=== PATIENT | female | born 1980 | race Caucasian/White ===

== ENCOUNTER 2020-03-04 16:17 | Emergency (ER) | payer MEDICAID, SELFPAY ==
[2020-03-04 16:30] VITALS: PULSE 114; RESP 20; TEMP 36.7; O2SAT 95; BMI 38.2
--- NOTE | 2020-03-04 18:16 | ED_ITS ---
HPI - General Adult General: Chief complaint: General Medical Stated complaint: Constant sweating, mild nausea, fatigue, Time Seen by Provider: 03/04/20 18:06 History of Present Illness: HPI narrative: Patient concerned about hepatitis C exposure through unprotected intercourse while back also concerned about diabetes. And patient says she is in [facility] to complete other testing says she does feel like she is more fatigued and urinating more sweating a lot denies any history of thyroid problems denies any vaginal discharge or other related problems. Onset (ago): month(s) Associated symptoms: Reports no associated symptoms; Deny chest pain, dyspnea, headache(s), nausea, rash or vomiting Review of Systems Const: Reports: fatigue and other (Sweats); Denies: fever(s), chills or body aches Eyes: Denies: change in vision or blurry vision ENMT: Denies: throat pain or nasal congestion Card: Denies: chest pain or dyspnea on exertion Resp: Denies: dyspnea, productive cough or non-productive cough GI: Denies: abdominal pain, nausea or vomiting Musc: Denies: extremity pain Skin/Breast: Denies: rash Neuro: Denies: headache(s) Psych: Denies: anxiety or depression Delta/Lymph: Denies: easy bruising Physical Exam Const: COMMON NORMALS: no acute distress, average body habitus and patient oriented x3 HENMT: COMMON NORMALS: normocephalic HEAD & SCALP: normal to inspection and normocephalic FACE & SINUS: normal facial exam Eye: COMMON NORMALS: conjunctivae normal GENERAL EYE: appearance normal, both eyes and all related structures CONJUNCTIVA: Yes conjunctivae normal Neck/C-Spine: COMMON NORMALS: no JVD Chest: COMMONS NORMALS: normal inspection of the chest Resp: COMMON NORMALS: normal respiratory effort and clear to auscultation bilaterally AUSCULTATION: clear to auscultation bilaterally Cardio: COMMON NORMALS: no JVD, regular rate and regular rhythm RATE: regular rate RHYTHM: regular rhythm GI: COMMON NORMALS: Normal to inspection, nondistended, normoactive bowel sounds present Extremity: COMMON NORMALS: normal to inspection and full ROM Neuro: COMMON NORMALS: patient oriented x3 Course Vital Signs: Vital signs: Vital Signs Temperature 98.1 F 03/04/20 16:30 Pulse Rate 114 H 03/04/20 16:30 Respiratory Rate 20 H 03/04/20 16:30 Pulse Oximetry 95 03/04/20 16:30 Coding Level of Care Code ED Summer Child Caregiver for Linda Jarquin
[2020-03-04 18:57] LABS: Add Urine Microscopic? NO
[2020-03-04 19:02] LABS: Bilirubin Urine Neg (Negative); Blood Urine Neg (Negative); Glucose Urine UA Norm (Normal); Ketones Urine Negative (Negative); Leukocyte Esterase Urine Negative (Negative); Nitrate Urine Negative (Negative); Protein Urine Neg (Negative); Urine Appearance Clear (CLEAR); Urine Color Yellow (Yellow); Urobilinogen Urine Norm (Negative); pH Urine 5 (5-7)
[2020-03-04 19:26] LABS: Basophils # 0.1 10^3/uL (0.0-0.1); Basophils % 0.4 %; Eosinophils # 0.3 10^3/uL (0.0-0.8); Eosinophils % 1.9 %; Hemoglobin 13.2 g/dL (11.5-15.3); Lymphocytes # 1.9 10^3/uL (0.8-4.8); Lymphocytes % 14.1 %; Mean Corpuscular HGB Conc 30.7 g/dL (30.0-36.0); Mean Corpuscular Hemoglobin 25.3 pg (28.0-34.0); Mean Corpuscular Volume 82.5 fL (81-99); Mean Platelet Volume 12.2 fL (7.4-10.4); Monocytes # 0.9 10^3/uL (0.2-0.9); Monocytes % 6.7 %; Neutrophils # 10.44 10^3/uL (1.8-7.7); Neutrophils % 76.1 %; Nucleated Red Blood Cells % 0 %; Platelet Count 351 10^3/cmm (130-400); Red Blood Count 5.21 10^6/uL (4.1-5.3); White Blood Count 13.7 10^3/uL (4.0-10.0)
[2020-03-04 19:39] LABS: Alanine Aminotransferase 14 U/L (0-33); Albumin Level 3.7 g/dL (3.5-5.2); Alkaline Phosphatase 129 IU/L (35-105); Anion Gap 14.1 (5-19); Aspartate Amino Transferase 15 U/L (0-32); Blood Urea Nitrogen 15 mg/dL (6-20); Carbon Dioxide 24 mmol/L (22-29); Chloride 103 mmol/L (98-107); Globulin 3.3 g/dL (1.3-4.6); Glomerular Filtration Rate 110.2 mL/min (90-130); Glucose 105 mg/dL (65-115); Osmolality Calculated 285 mOsm/kg (285-295); Potassium 4.1 mmol/L (3.5-5.1); Sodium 137 mmol/L (136-145); Total Bilirubin 0.5 mg/dL (0.15-1.2)
[2020-03-04 19:53] LABS: Hepatitis A Antibody IgM Non-Reactive (Nonreactive); Hepatitis B Core IgM Non-Reactive (Nonreactive); Hepatitis B Surface Antigen Non-Reactive (Nonreactive); Hepatitis C Virus Antibody Non-Reactive (Nonreactive)
[2020-03-04 20:05] VITALS: BP 160/113; PULSE 109; RESP 14; O2SAT 97
== END 2020-03-04 20:05 | disposition home or self-care (01) ==
PROVIDERS: Family Medicine; Emergency Provider Nurse Practitioner Family
DX: R61 Generalized hyperhidrosis (principal); R11.0 Nausea
CPT/HCPCS: 12345; 80053; 80074; 81003; 85025; 99281; 99282

== ENCOUNTER 2020-03-10 03:41 | Emergency (ER) | payer MEDICAID, SELFPAY ==
[2020-03-10 03:43] VITALS: BP 154/106; PULSE 104; RESP 18; TEMP 36.3; O2SAT 97; BMI 38.2
--- NOTE | 2020-03-10 04:14 | ED_ITS ---
HPI - Dental/Oral General: Chief complaint: Dental/Oral Stated complaint: severe molar pain Time Seen by Provider: 03/10/20 03:58 History of Present Illness: MD Complaint: tooth pain Teeth map: 1. Onset (ago): week(s) Duration: intermittent Severity: moderate Relieving factors: nothing Exacerbating factors: cold and drinking fluids Context: trauma (mechanism) Associated symptoms: Reports ear or mastoid pain; Denies fever(s), gum swelling, odynophagia or tongue swelling Review of Systems Const: Denies: fever(s) ENMT: Reports: ear or mastoid pain; Denies: odynophagia GI: Denies: vomiting Skin/Breast: Denies: rash All/Imm: Denies: tongue swelling Physical Exam Const: GENERAL APPEARANCE: cooperative and well kempt HENMT: COMMON NORMALS: normocephalic, external ears normal and Normal external nose present HEAD & SCALP: normocephalic FACE & SINUS: normal facial exam, sinuses nontender and face symmetric; no edema NOSE: Normal external nose present and Normal nares present EXTERNAL EAR: Yes external ears normal EXTERNAL AUDITORY CANAL: Abnormal EAC present EAC laterality: right Details: excessive cerumen TYMPANIC MEMBRANE: TM normal on the right MOUTH: Normal oral and palatal mucosa present, lip normal and tongue normal TEETH & GINGIVA IMAGES: 1. partial fracture tooth. no surrounding swelling or drainage THROAT: uvula midline Eye: COMMON NORMALS: Equal, round and reactive pupils present, EOMs intact bilaterally and conjunctivae normal GENERAL EYE: appearance normal, both eyes and all related structures PERIORBITAL: periorbital findings normal EYELID: eyelids normal CONJUNCTIVA: Yes conjunctivae normal PUPIL: Yes Equal, round and reactive pupils present Psych: APPEARANCE: Yes well kempt Course Vital Signs: Vital signs: Vital Signs Temperature 97.3 F L 03/10/20 03:43 Pulse Rate 104 H 03/10/20 03:43 Respiratory Rate 18 03/10/20 03:43 Blood Pressure 154/106 03/10/20 03:43 Pulse Oximetry 97 03/10/20 03:43 Discharge Plan Discharge Patient Disposition: Home Clinical Impression: Fracture of tooth Qualifiers: Encounter type: initial encounter Fracture type: closed Qualified Code(s): S02.5XXA - Fracture of tooth (traumatic), initial encounter for closed fracture Condition: Stable Prescriptions: New ketorolac 10 mg tablet 10 mg PO TID PRN (Reason: pain) Qty: 10 RF: 0 Keflex 500 mg capsule 500 mg PO Q6H 10 Days Qty: 40 RF: 0 Discharge Orders: Discharge ED (Routine); Ordered 03/10/20 Ordered By: Adam Walls Referrals: [facility] [Other] Discharge Diet: Advance as tolerated Patient Instructions: Toothache (ED) Coding Level of Care Code ED Welt Rougher for Linda Jarquin
[2020-03-10 04:21] VITALS: RESP 17; O2SAT 98
[2020-03-10] MEDS: ketorolac 10 mg Tablet PO (04:21)
[2020-03-10] MEDS: oxyCODONE-APAP 5-325 mg Tablet 1 TAB PO (04:21)
[2020-03-10] MEDS: cephALEXin 500 mg Capsule PO (04:25)
[2020-03-10 04:36] VITALS: BP 143/98; PULSE 99; RESP 17; TEMP 36.6; O2SAT 98
[2020-03-10] MEDS: lidocaine 2% viscous 15 mL UDC 3 ML MUCOUS MEM (04:36)
--- NOTE | 2020-03-10 04:40 | PC.NURSE ---
Patient sent home with viscous lidocaine per physicians instructions.
== END 2020-03-10 04:40 | disposition home or self-care (01) ==
PROVIDERS: Emergency Provider Emergency Medicine
DX: S02.5XXA Fracture of tooth (traumatic), initial encounter for closed fracture (principal); X58.XXXA Exposure to other specified factors, initial encounter
CPT/HCPCS: 12345; 99281; 99283

== ENCOUNTER 2020-03-12 11:22 | Emergency (ER) | payer MEDICAID, SELFPAY ==
[2020-03-12 11:24] VITALS: BP 161/109; PULSE 108; RESP 18; TEMP 36.8; O2SAT 94; BMI 38.2
--- NOTE | 2020-03-12 11:46 | ED_ITS ---
HPI - Recheck/Abnormal Lab/Rx General: Chief Complaint: Recheck/Abnormal Lab/Rx Stated Complaint: FRACTURED TOOTH, NEEDS PAIN MEDS Time Seen by Provider: 03/12/20 11:31 History of Present Illness: HPI narrative: 39-year-old female patient presents to the emergency department with continued right upper dental pain. She reports is currently out of pain medication is requesting a refill. She reports does not have a ride to her dental provider, insurance will only pay for her dental provider in [facility]. Reports currently living in a homeless group home and will need transportation assistance to the dental provider. She reports dental pain is worse at night. Does not like using lidocaine, does not like the taste. She has not attempted Tylenol or other medications for pain. Symptoms since prior visit: no new symptoms Associated symptoms: none Review of Systems General: Reports: 10 or more systems reviewed and unremarkable except in HPI and below Const: Denies: fever(s), chills or diaphoresis Eyes: Denies: blurry vision or eye redness ENMT: Reports: dental pain; Denies: throat pain, uvular edema, dry mouth, change in hearing, disequilibrium or nasal congestion Card: Denies: chest pain, palpitations or irregular heart rhythm Resp: Denies: dyspnea, productive cough, non-productive cough or wheezing GI: Denies: abdominal pain, nausea or vomiting : Denies: difficulty voiding or dysuria Musc: Denies: neck pain, back pain or joint pain Skin/Breast: Denies: rash or pruritus Neuro: Denies: headache(s), weakness in extremities or behavioral changes Psych: Denies: anxiety, depression, change in appetite or irritability Delta/Lymph: Denies: easy bruising Physical Exam Const: COMMON NORMALS: no acute distress, patient oriented x3, healthy appearing and alert GENERAL APPEARANCE: cooperative, comfortable and well hydrated HENMT: COMMON NORMALS: normocephalic, atraumatic, EAC's normal, TM's normal bilaterally, Normal external nose present and moist oral mucous membranes HEAD & SCALP: normal to inspection, normocephalic and atraumatic FACE & SINUS: normal facial exam, sinuses nontender and face symmetric; no ecchymosis, no erythema, no edema, no laceration and no Facial tenderness on exam of face and sinuses NOSE: Normal external nose present EXTERNAL AUDITORY CANAL: EAC's normal TYMPANIC MEMBRANE: TM's normal bilaterally TEETH & GINGIVA IMAGES: 1. medial avusion with dental caries present, no erythema, gingival irritation/edema. THROAT: posterior oropharynx normal, tonsils normal and uvula midline; no uvular edema Eye: COMMON NORMALS: Equal, round and reactive pupils present and EOMs intact bilaterally GENERAL EYE: appearance normal, both eyes and all related structures PUPIL: Yes Equal, round and reactive pupils present Neck/C-Spine: COMMON NORMALS: full ROM and no lymphadenopathy GENERAL: Yes normal visual inspection and Yes trachea midline CERVICAL SPINE: Yes cervical ROM normal Lymph: LYMPHATIC: no lymphadenopathy noted Chest: COMMONS NORMALS: normal inspection of the chest Resp: COMMON NORMALS: normal respiratory effort and clear to auscultation bilaterally AUSCULTATION: clear to auscultation bilaterally Cardio: COMMON NORMALS: regular rhythm, S1 normal heart sound present and S2 normal heart sound present RHYTHM: regular rhythm HEART SOUNDS: S1 normal heart sound present and S2 normal heart sound present GI: COMMON NORMALS: Soft to palpation and non-tender INSPECTION: Yes normal to inspection PALPATION: Yes Soft to palpation : COMMON NORMALS: Yes no CVA tenderness BLADDER/KIDNEY EXAM: Yes no CVA tenderness Back/Pelvis: COMMON NORMALS: no CVA tenderness and thoracic and lumbar spine normal to inspection Extremity: COMMON NORMALS: normal to inspection and capillary refill normal Neuro: COMMON NORMALS: patient oriented x3 and no focal motor deficits SENSORIUM/ORIENTATION: Yes alert Psych: COMMON NORMALS: mental status grossly normal, Normal thought process present and cooperative ACTIVITY/MOTOR BEHAVIOR: Yes appropriate eye contact THOUGHT PROCESS: Normal thought process present Skin: COMMON NORMALS: no rashes or lesions noted and turgor normal GENERAL SKIN EXAM: no rashes or lesions noted and turgor normal Course Vital Signs: Vital signs: Vital Signs Temperature 98.2 F 03/12/20 11:24 Pulse Rate 108 H 03/12/20 11:24 Respiratory Rate 18 03/12/20 11:24 Blood Pressure 161/109 03/12/20 11:24 Pulse Oximetry 94 03/12/20 11:24 MDM - Recheck/Abnormal Lab/Rx MDM Narrative: Medical decision making narrative: patient services manager was able to assist patient with transportation needs. Discussed with patient will need to follow-up with dentistry for further pain medication. She was prescribed ibuprofen and Tylenol, prescription strength here in the ED. She was also provided prescription for dental wax. Tooth did not appear with infection, no surrounding gumline or gingival edema/erythema. She is experiencing to sensitivity at night due to sleeping with her mouth open. Dental wax will help with dental pain. Discharge Plan Discharge Patient Disposition: Home Clinical Impression: Pain, dental Condition: Stable Prescriptions: New IBU 800 mg tablet 800 mg PO TID PRN (Reason: pain) Qty: 30 RF: 0 acetaminophen 500 mg tablet 1,000 mg PO TID PRN (Reason: pain) Qty: 30 RF: 0 Discontinued ketorolac 10 mg tablet 10 mg PO TID PRN (Reason: pain) Qty: 10 RF: 0 No Action Keflex 500 mg capsule 500 mg PO Q6H 10 Days Qty: 40 RF: 0 Discharge Orders: Discharge ED (Routine); Ordered 03/12/20 Ordered By: Prema Fajardo Discharge Diet: Usual diet Discharge Activity: Limit activity as instructed Patient Instructions: Dental Abscess (ED), Dental Caries (ED), Toothache (ED) Activity Restrictions/Additional Instructions: Avoid chewing on the affected side Soft foods, continue warm salt water swish and spit several times daily, may also alternate with half warm water half hydrogen peroxide swish and spit several times daily Apply dental wax to the affected tooth at night to help with pain you experience Do not take [id number] medications such as Tylenol, Advil, Aleve as duplication of therapy may occur -take prescribed medication only Return to the emergency department if you develop drooling, inability to swallow or swelling under the throat Continue follow-up with your dentist as scheduled, continue current antibiotics until all gone, even if better Coding Level of Care Code ED Grounds Maintenance Worker for Linda Fwd Exam Comprehensive
--- NOTE | 2020-03-12 12:04 | DCPLANNER ---
project/production manager imaging was asked to help arrange a ride for patient to a dental provider. project/production manager imaging gave patient the phone to medicaid transportation for her to call and arrange a ride when she gets an appointment to a dentist.
== END 2020-03-12 12:19 | disposition home or self-care (01) ==
PROVIDERS: Emergency Provider Nurse Practitioner Family
DX: K08.89 Other specified disorders of teeth and supporting structures (principal)
CPT/HCPCS: 12345; 99281; 99282